=== PATIENT | female | born 1925 | race Caucasian/White ===

== ENCOUNTER → 2016-06-25 | Outpatient (CLI) | payer OTHER, MEDICARE ==
[~2016-06-25] MED LIST: CIPR1TAB11 PO; CLIN300C2 PO; WARF5TAB90 PO
[2016-06-25 13:35] LABS: BLOOD UREA NITROGEN 11 mg/dl (7-18); CALCIUM 8.9 mg/dl (8.5-10.1); CARBON DIOXIDE 27 mmol/L (21-32); CHLORIDE 108 mmol/L (98-107); CREATININE 0.61 mg/dl (0.60-1.20); GLUCOSE 81 mg/dl (70-99); POTASSIUM 4.3 mmol/L (3.5-5.1); SODIUM 143 mmol/L (136-145)
== END | disposition home or self-care (01) ==
LOC: C.LABMFLN 10:23
PROVIDERS: ATTEND Internal Medicine Cardiovascular Disease
DX: R06.09 Other forms of dyspnea (principal)

== ENCOUNTER → 2016-07-07 | Outpatient (CLI) | payer OTHER, MEDICARE ==
[2016-07-07 16:14] LABS: BLOOD UREA NITROGEN 16 mg/dl (7-18); BUN/CREATININE RATIO 21.6 (10-20); CALCIUM 9.2 mg/dl (8.5-10.1); CARBON DIOXIDE 29 mmol/L (21-32); CHLORIDE 104 mmol/L (98-107); CREATININE 0.74 mg/dl (0.60-1.20); GLUCOSE 79 mg/dl (70-99); POTASSIUM 4.1 mmol/L (3.5-5.1); SODIUM 142 mmol/L (136-145)
== END | disposition home or self-care (01) ==
LOC: C.LABMFLN 14:06
PROVIDERS: ATTEND Internal Medicine Cardiovascular Disease
DX: I10 Essential (primary) hypertension (principal)

== ENCOUNTER → 2016-10-31 | Outpatient (CLI) | payer OTHER, MEDICARE ==
[2016-10-31 13:18] LABS: HEMATOCRIT 39.5 % (37-47); MEAN CELL VOLUME 93.2 fL (80-100); MEAN CORPUSCULAR HEMOGLOBIN 30.9 pg (25-34); MEAN CORPUSCULAR HGB CONC 33.2 g/dl (32-36); MEAN PLATELET VOLUME 9.9 fL (7.4-10.4); PLATELET COUNT 187 K/uL (130-400); RED BLOOD COUNT 4.24 M/uL (4.2-5.4); WHITE BLOOD COUNT 5.42 K/uL (4.8-10.8)
[2016-10-31 13:31] LABS: BLOOD UREA NITROGEN 12 mg/dl (7-18); BUN/CREATININE RATIO 17.2 (10-20); CARBON DIOXIDE 29 mmol/L (21-32); CHLORIDE 107 mmol/L (98-107); CREATININE 0.69 mg/dl (0.60-1.20); GLUCOSE 90 mg/dl (70-99); POTASSIUM 3.8 mmol/L (3.5-5.1); SODIUM 144 mmol/L (136-145)
== END | disposition home or self-care (01) ==
LOC: C.LABMFLN 09:56
PROVIDERS: ATTEND Internal Medicine Cardiovascular Disease
DX: I10 Essential (primary) hypertension (principal)

== ENCOUNTER → 2017-07-15 | Outpatient (CLI) | payer OTHER, MEDICARE ==
[~2017-07-15] MED LIST changes: -CIPR1TAB11 PO; -CLIN300C2 PO
[2017-07-15 12:47] LABS: INR 1.5 (0.9-1.1); PTT PATIENT 28.5 SECONDS (21.0-31.0)
[2017-07-15 13:06] LABS: HEMATOCRIT 42.3 % (37-47); HEMOGLOBIN 14.1 g/dL (12.0-16.0); MEAN CELL VOLUME 92.6 fL (80-100); MEAN CORPUSCULAR HEMOGLOBIN 30.9 pg (25-34); MEAN CORPUSCULAR HGB CONC 33.3 g/dl (32-36); RED CELL DISTRIBUTION WIDTH CV 13.8 % (11.5-14.5); RED CELL DISTRIBUTION WIDTH SD 46.5 fL (36.4-46.3); WHITE BLOOD COUNT 6.43 K/uL (4.8-10.8)
[2017-07-15 13:07] LABS: BASO % 1.1 %; BASO ABS # 0.07 K/uL (0-0.2); EOS % 2.8 %; EOS ABS # 0.18 K/uL (0-0.5); IG# 0.02 K/uL (0.00-0.02); LYMPH % 28.9 %; LYMPH ABS # 1.86 K/uL (1.2-3.4); MONO % 8.6 %; MONO ABS # 0.55 K/uL (0.11-0.59); NEUT % 58.3 %; NEUT ABS # 3.75 K/uL (1.4-6.5)
[2017-07-15 13:26] LABS: BLOOD UREA NITROGEN 15 mg/dl (7-18); CALCIUM 9.1 mg/dl (8.5-10.1); CARBON DIOXIDE 27 mmol/L (21-32); CREATININE 0.72 mg/dl (0.60-1.20); GLUCOSE 106 mg/dl (70-99); POTASSIUM 3.8 mmol/L (3.5-5.1); SODIUM 140 mmol/L (136-145)
== END | disposition home or self-care (01) ==
LOC: C.LABMFLN 10:23
PROVIDERS: ATTEND Internal Medicine Cardiovascular Disease
DX: I42.9 Cardiomyopathy, unspecified (principal); Z01.818 Encounter for other preprocedural examination

== ENCOUNTER 2017-07-28 11:01 | Day surgery (SDC) | payer OTHER, MEDICARE ==
[~2017-07-28] VITALS: Ht 160 cm; Wt 65.0 kg
[~2017-07-28 11:01] MED LIST changes: +LACTATED RINGER'S 1000ML IV SCH; +VANCOMYCIN 1GM/270ML NSS 270 ML IV SCH
[2017-07-28] MEDS ORDERED: PSYL0.524 PO (11:51)
[2017-07-28] MEDS ORDERED: MULT-506 PO (11:51)
[2017-07-28] MEDS ORDERED: IRON1TAB4 PO (11:51)
[2017-07-28] MEDS ORDERED: CHOL1000 PO (11:51)
[2017-07-28] MEDS ORDERED: VITACAP26 PO (11:51)
[2017-07-28 11:52] VITALS: BP 193/97; PULSE 71; TEMP 36.6; O2SAT 94; Ht 160 cm; Wt 65.0 kg
[2017-07-28] MEDS ORDERED: BACITRACIN 50000 UNIT VIAL ONE (12:34)
[2017-07-28] MEDS ORDERED: BACITRACIN OINT 0.9 GM PKT ONE (12:34)
[2017-07-28] MEDS ORDERED: LIDOCAINE HCL 1% 20 ML VIAL ONE (12:34)
--- NOTE | 2017-07-28 13:18 | History & Physical Bridge Note ---
H&P Re-Evaluation Bridge Note: I have examined the patient, reviewed the History & Physical and in the interval since the performance of the History & Physical I have noted the following changes of clinical significance: No changes noted. I reviewed the indications, procedure, risks and alternatives of device replacement as well as possible lead revision (which is unlikely) with her and she understands and agrees to proceed. We will plan single-chamber pacemaker implantation due to permanent atrial fibrillation. She also requests that a lead which is palpable near her axilla be moved because it bothers her from time to time and I discussed the procedure and the risks of that as well. Consent obtained. I reviewed the risks of sedation with her and she understands and agrees to proceed. Consent obtained.
--- NOTE | 2017-07-28 13:21 | Pre Sedation Assessment ---
Pre Sedation Assessment General Date of Sedation: Jul 28, 2017. Vital Signs Past 12 Hours Date Time Temp Pulse Resp B/P (MAP) Pulse Ox O2 Delivery O2 Flow Rate FiO2 07/28/17 11:52 36.6 71 18 193/97 (129) 94 Room Air Review Cardiovascular: regular rate, rhythm Lungs: lungs clear Pre-Sedation Airway Assessment Smoking Status: Never Smoker Hx of Sleep Apnea: No Thyro-mental Distance: > 3 Finger Breadths Oral Cavity: Capped Teeth Mallampati Classification: Class II ASA Classification: Class III NPO Status Date of Last Intake of Fluids: Jul 27, 2017 Time of Last Intake of Fluids: 2300 Date of Last Intake of Solids: Jul 27, 2017 Time of Last Intake of Solids: 2300 Procedure Planning Contraindications for Sedation: None Current Medications Reviewed: Yes Notes The planned sedation has been discussed with the patient. Informed Consent was obtained. I have identified the patient, determined the appropriateness of sedation and have assessed the patient immediately prior to the procedure. All medicine(s) and interventions are by my order.
[2017-07-28] MEDS ORDERED: FENTANYL CITRATE INJ 50 MCG/1 ML 2 ML VIAL ONE (13:49)
[2017-07-28] MEDS ORDERED: MIDAZOLAM HCL 5 MG/ML 1 ML VIAL ONE (13:49)
--- NOTE | 2017-07-28 15:04 | [facility] Operative Report ---
Operative Report Operative Date Jul 28, 2017. Pre-Operative Diagnosis Pacemaker end of life incisional discomfort Permanent atrial fibrillation Post-Operative Diagnosis Same Procedure(s) Performed Dual-chamber pacemaker explantation single-chamber pacemaker implantation Pacemaker pocket revision Surgeon Dr. Pineda Testing Coordinator Surgeon(s) None Estimated Blood Loss 10 cc Findings Good chronic ventricular lead threshold Suture sleeves had migrated toward the pacemaker header likely resulting in the incisional discomfort, they did not appear to be sutured in place Specimens Old pacemaker, return to [facility] Anesthesia Local with sedation Complication(s) None Disposition Same day surgery Description of Procedure After obtaining informed consent for the procedure, the patient was brought to the laboratory being NPO after midnight. After identification in the laboratory the patient was prepped and draped in the standard sterile manner for a left- sided device replacement and pocket revision. The left prepectoral region was anesthetized with 1% lidocaine local anesthetic and once adequate anesthesia was obtained a 5 cm incision was made through the old implant scar and carried down to the pacemaker generator. The generator was dissected free of tissue and explanted. The tissue was dissected away from the leads down to the suture collars, the suture collars were noted to be free and not sutured to the pectoralis fascia. There appeared to be some old sutures proximal to the lead collar, these may have been around lead collars originally or perhaps around the lead itself. These were not disturbed. The suture collars were removed medially and attached to the pectoralis fascia with 2 sutures of 0 silk around each lead collar. The pacemaker was removed from the leads and connected to an external pacing system. Pacing and sensing characteristics were evaluated for the ventricular lead as noted on the implant data sheet. The atrial lead was capped. A new pacemaker was attached to the ventricular lead and found to be functioning normally. The pacemaker was placed in the pocket with the leads coiled beneath it. The incision was closed with a running double subcutaneous closure of 3-0 Vicryl absorbable suture followed by a running subcuticular skin closure of 4-0 Vicryl absorbable suture. The patient tolerated the procedure well, there were no complications and the patient was transferred to the same-day surgery unit for observation and subsequent discharge. I attest to the content of the Intraoperative Record and any orders documented therein. Any exceptions are noted below.
[2017-07-28 15:10] VITALS: BP 177/82; PULSE 69; TEMP 36.4; O2SAT 97
--- NOTE | 2017-07-28 15:12 | Post Sedation Assessment ---
Post Sedation Assessment General Date of Sedation Jul 28, 2017. Vital Signs: Vital Signs Past 12 Hours Date Time Temp Pulse Resp B/P (MAP) Pulse Ox O2 Delivery O2 Flow Rate FiO2 07/28/17 11:52 36.6 71 18 193/97 (129) 94 Room Air Post Procedure Recovery Score Activity: (2) Moves 4 extremities * Respiration: (2) Deep breath/cough Circulation: (2) +/-20% PreAnes Value Consciousness: (2) Fully Awake Oxygen Saturation: (2) > 92% On Room Air Post Anesthesia Score: 10 Discharge Sedation Level of Care: Fast Track Phase II Post Sedation Plan On clinical assessment, the patient appears to have tolerated the sedation without complications. Patient is recovering as anticipated. Patient will continue to be monitored by nursing and may be discharged when sedation discharge criteria are met per below protocol. Upon Completions of procedure and additional 15 minutes continue every 5 minute vital signs and the P.A.R. score; then discharge to a Phase I or Fast Track to Phase II per the following guidelines: * Discharge Patient to appropriate Phase II area if PAR is 8 or greater or return to pre- procedure baseline. The post - procedure orders will be as directed. * If PAR score is less than 8 or not return to pre-procedure baseline then patient will follow Phase I monitoring till PAR is reached for Phase II. The Phase I may be done in procedure room or may call to secure a Phase I area. * If naloxone or flumazenil are used for reversal, hold in Phase I for an additional 60 -120 minutes before discharge to Phase II. Please call the Sedation Physician to re-evaluate and complete post-note for discharge to Phase II area. Do NOT discharge from procedure sedation or Phase 1 until post- sedation evaluation note is complete by procedure /sedation MD Sedation Discharge Instructions to be given to the patient at discharge to home.
[2017-07-28] MEDS ORDERED: ACETAMINOPHEN 325 MG TAB PO PRN (15:15)
[2017-07-28] MEDS ORDERED: KETOROLAC TROMETHAMINE 10 MG TAB PO PRN (15:15)
[2017-07-28 15:26] VITALS: BP 195/93; PULSE 85; O2SAT 94
--- NOTE | 2017-07-28 15:46 | Discharge Instructions ---
Discharge Instructions Date of Service Jul 28, 2017. Admission Reason for Admission: Elective Replacement Indicator Discharge Discharge Diagnosis / Problem: Pacemaker at [facility] Discharge Goals Goal(s): Decrease discomfort, Improve disease control Activity Recommendations Activity Limitations: resume your previous activity . Instructions / Follow-Up Instructions / Follow-Up ACTIVITY RECOMMENDATIONS: * Do not raise affected arm over head for 2 weeks. SPECIAL CARE INSTRUCTIONS: * If bleeding occurs, apply direct pressure to area for 5 minutes. * Call your doctor if you have severe pain, fever, drainage or bleeding at site. * Keep dressing on and dry. * Keep any scheduled doctor's appointment. * Implant Card - hand held device with website information given. SKIN IRRITATION: * You may experience some redness and/or swelling in the area where radiation was administered. If any skin irritation occurs, please contact your family physician. FOLLOW UP VISIT: Dr. Pineda Saturday, July 29, 2017, 10:00 AM. Current Hospital Diet Patient's current hospital diet: AHA Diet (Heart Healthy) Discharge Diet Recommended Diet: AHA Diet (Heart Healthy) Procedures Procedures Performed: Pacemaker replacement Pacemaker pocket revision Pending Studies Studies pending at discharge: no Medical Emergencies . Who to Call and When: Medical Emergencies: If at any time you feel your situation is an emergency, please call 911 immediately. . Non-Emergent Contact Non-Emergency issues call your: Primary Care Provider . . "Provider Documentation" section prepared by Gustavo Pineda. .
[2017-07-28 15:58] VITALS: BP 180/87; PULSE 66; TEMP 36.4; O2SAT 95
== END 2017-07-28 16:20 | disposition home or self-care (01) ==
LOC: C.ACU 11:01
PROVIDERS: ATTEND Internal Medicine Cardiovascular Disease
DX: Z45.010 Encounter for checking and testing of cardiac pacemaker pulse generator [battery] (principal); I44.2 Atrioventricular block, complete; I48.2 Chronic atrial fibrillation; I47.2 Ventricular tachycardia; I42.9 Cardiomyopathy, unspecified; I65.29 Occlusion and stenosis of unspecified carotid artery; H40.9 Unspecified glaucoma; E78.5 Hyperlipidemia, unspecified; I34.0 Nonrheumatic mitral (valve) insufficiency; G62.9 Polyneuropathy, unspecified; I07.1 Rheumatic tricuspid insufficiency; Z87.891 Personal history of nicotine dependence; Z79.01 Long term (current) use of anticoagulants; Z90.49 Acquired absence of other specified parts of digestive tract; Z90.710 Acquired absence of both cervix and uterus; Z88.0 Allergy status to penicillin; Z82.49 Family history of ischemic heart disease and other diseases of the circulatory system